=== PATIENT | female | born 1950 | race Caucasian/White ===

== ENCOUNTER → 2018-03-28 | Outpatient (CLI) | payer MEDICARE, OTHER ==
[~2018-03-28] MED LIST: ADVAIR HFA 230M12 GM INH; ASPIR 8181 MG PO; EFFEXOR XR75 MG PO; FLOVENT DISKU250 MCG IH; METOPROLOL TART25 MG PO; MOBIC7.5 MG PO; NORCO 5-325 TA1 EAC1 PO; SINGULAIR 10 MG10 M1 PO; TOPAMAX25 M1 PO; TOPROL XL25 MG PO; VICODIN 5-3001 EACH PO
--- NOTE | 2018-03-28 10:44 | 2DMMODE ---
[place] [address] 2 D/M-MODE ECHOCARDIOGRAM Name: ELINA CHOPRA Room: [facility]#: [id number] Admission: 03/28/18 Attend Phys: Jarret Rankin Discharge: Date of : 48 Date of Service: 03/28/18 1043 Report #: [id number] THIS REPORT FOR: //name// APPROVED REPORT Study performed: 03/28/2018 09:01:19 EXAM: Comprehensive 2D, Doppler, and color-flow Echocardiogram Patient Location: Out-Patient Status: routine BSA: 1.89 HR: 63 bpm BP: 140/90 mmHg Other Information Study Quality: Good Indications Diastolic Dysfunction 2D Dimensions LVEF(%): 74.62 (>50%) IVSd: 10.68 (7-11mm) LVOT Diam: 20.11 (18-24mm) LVDd: 40.42 mm PWd: 9.65 (7-11mm) Ascending Ao: 32.46 (22-36mm) LVDs: 23.04 (25-40mm) Aortic Root: 26.96 mm Cota's LVEF: 74.62 % Volumes Left Atrial Volume (Systole) LA ESV Index: 11.90 mL/m2 Aortic Valve AoV Peak Rob.: 1.42 m/s AO Peak Gr.: 8.04 mmHg LVOT Max P.97 mmHg AO Mean Gr.: 4.18 mmHg LVOT Mean P.58 mmHg LVOT Max V: 0.86 m/s AO V2 VTI: 28.60 cm LVOT Mean V: 0.59 m/s RODNEY (VTI): 2.04 cm2 LVOT V1 VTI: 18.32 cm Mitral Valve E/A Ratio: 0.95 MV Decel. Time: 184.40 [place] [address] 2 D/M-MODE ECHOCARDIOGRAM Name: ELINA CHOPRA Room: [facility]#: [id number] Admission: 03/28/18 Attend Phys: Jarret Rankin Discharge: Date of : 48 Date of Service: 03/28/18 1043 Report #: [id number] MV E Max Rob.: 0.85 m/s MV PHT: 53.48 ms MVA (PHT): 4.11 cm2 TDI E/Lateral E': 10.63 E/Medial E': 9.44 Medial E' Rob.: 0.09 m/s Lateral E' Rob.: 0.08 m/s Pulmonary Valve PV Peak Rob.: 0.64 m/s PV Peak Gr.: 1.66 mmHg Tricuspid Valve TR Peak Gr.: 25.19 mmHg RVSP: 30.19 mmHg Left Ventricle The left ventricle is normal size. There is normal LV segmental wall motion. There is normal left ventricular wall thickness. Left ventricular systolic function is normal. The left ventricular ejection fraction is within the normal range. LVEF is 55-60%. Grade I - abnormal relaxation pattern. Right Ventricle The right ventricle is normal size. The right ventricular systolic function is normal. Atria The left atrium size is normal. The right atrium size is normal. Aortic Valve The aortic valve is normal in structure. No aortic regurgitation is present. There is no aortic valvular stenosis. Mitral Valve The mitral valve is normal in structure. Mild mitral regurgitation. No evidence of mitral valve stenosis. Tricuspid Valve The tricuspid valve is normal in structure. Mild tricuspid regurgitation. The RVSP is __30.2 mmHg. Pulmonic Valve The pulmonary valve is normal in structure. [place] [address] 2 D/M-MODE ECHOCARDIOGRAM Name: ELINA CHOPRA Room: [facility]#: [id number] Admission: 03/28/18 Attend Phys: Jarret Rankin Discharge: Date of : 48 Date of Service: 03/28/18 1043 Report #: [id number] Great Vessels The aortic root is normal in size. IVC is normal in size and collapses with >50% inspiration Pericardium There is no pericardial effusion. <Conclusion> LVEF is 55-60%. Grade I - abnormal relaxation pattern. There is normal LV segmental wall motion. No aortic regurgitation is present. There is no aortic valvular stenosis. Mild mitral regurgitation. Mild tricuspid regurgitation. The RVSP is 30.2 mmHg. <ELECTRONICALLY SIGNED> By: Mainor Santos MD, FACC 03/28/18 1043 1043 1043 Mainor Santos MD, FACC /INF
== END ==
LOC: M.CRD 08:30
DX: I08.1 Rheumatic disorders of both mitral and tricuspid valves (principal); I11.0 Hypertensive heart disease with heart failure; I50.30 Unspecified diastolic (congestive) heart failure

== ENCOUNTER → 2020-07-16 | Outpatient (CLI) | payer MEDICARE, OTHER ==
[~2020-07-16] MED LIST changes: +ALBUTEROL2.5 MG/31 INH; +ASPIRIN EC81 M1 PO; +BACLOFEN 10MG T10 MG PO; +CALCIUM PO; +FLONASE 0.05%50 MCG NARES; +HYDROCODON-ACE1 EAC7 PO; +LEVALBUTEROL TA15 GM INH; +LEVSIN0.125 MG PO; +LOPRESSOR50 MG PO; +MURO-128 5% OPH15 M1 OPHTHALMIC; +OMEPRAZOLE40 MG PO; +PHENERGAN 25 MG25 M1 PO; +PROBIOTIC1 EAC7 PO; +ROXICODONE5 MG PO; +SUPER THERAVIT1 EACH PO; -VICODIN 5-3001 EACH PO; +XANAX 0.5 MG0.5 M1 PO; +XIFAXAN550 M1 PO
== END ==
LOC: M.LAB 10:32
PROVIDERS: ATTEND Surgery
DX: Z01.812 Encounter for preprocedural laboratory examination (principal); Z20.828 Contact with and (suspected) exposure to other viral communicable diseases; K80.20 Calculus of gallbladder without cholecystitis without obstruction

== ENCOUNTER → 2020-07-21 | Day surgery (SDC) | payer MEDICARE, OTHER ==
--- NOTE | 2020-07-23 15:07 | PATH ---
[address] [address] PATHOLOGY RPT PROCEDURE Name: ELINA CHOPRA Room: [facility].#: [id number] Admission: 07/21/20 Date of : 48 Discharge: Report #: [id number] Path Case #: [id number] [facility] Accession Number: [id number] . 01 Material submitted: . gallbladder - GALLBLADDER . 01 Clinical history: . CHOLELITHIASIS . 02 Diagnosis: Gallbadder: - Chronic cholecystitis and cholelithiasis. (NARENDRA:luis; 07/23/2020) S 07/23/2020 1001 Local . 02 Electronically signed: . Alex Hatfield MD, Pathologist NPI- [id number] . 01 Gross description: . The specimen is received in formalin, labeled "jeison Rudd". Received is an intact gallbladder measuring 10.2 x 3.3 x 3.0 cm in greatest dimensions displaying a blue-martins serosal surface. Opening the specimen reveals a velvety, bile-stained mucosa with a gallbladder wall thickness of a 0.1 cm. Calculi are present displaying a bright yellow and multifaceted appearance, and no masses or lesions are noted grossly. Instructional Support Assistant sections, to include the proximal margin, are submitted in cassette A1. (CAA; 07/22/2020) QA/QA 07/22/2020 1347 Local . 02 Pathologist provided ICD-10: K80.10 . 02 CPT . 857980 Specimen Comment: A courtesy copy of this report has been sent to [phone] Specimen Comment: [phone] Specimen Comment: Report sent to / DR MCADAMS Performed at: [address] [id number] MD Brian Friend MD Phone: [phone] Performed at: [address] [id number] [address] [address] PATHOLOGY RPT PROCEDURE Name: ELINA CHOPRA Room: [facility] Jarret.Liang#: [id number] Admission: 07/21/20 Date of : 48 Discharge: Report #: [id number] Path Case #: [id number] MD Alex Hatfield MD Phone: [phone]
--- NOTE | 2020-07-25 10:32 | OP ---
[address] [address] OPERATIVE REPORT Name: NAVELINA K Room: [facility]#: [id number] Admission: 07/21/20 Attend Phys: Van Riley DO Discharge: Date of : 48 Report #: [id number] THIS REPORT FOR: //name// cc: Precious Wells MD, Jayne Lora MD ~ CC: Van Nino DICTATED BY: Aleksandr Velazquez DO DATE OF SERVICE: 07/21/2020 Aleksandr Velazquez DO PGY4 dictating operative report on behalf of Van Riley DO PREOPERATIVE DIAGNOSIS: Cholelithiasis. POSTOPERATIVE DIAGNOSIS: Cholelithiasis. SURGEON: Van Riley DO CO-SURGEON: Aleksandr Velazquez DO PGY4. PAPERHANGER PIPE: RUBIN Dudley. OPERATION PERFORMED: Laparoscopic cholecystectomy with immunofluorescent imaging. ANESTHESIA: General and regional. ESTIMATED BLOOD LOSS: 20 mL. SPECIMENS REMOVED: Gallbladder. COMPLICATIONS: None. HISTORY OF PRESENT ILLNESS: The patient is a 70-year-old female who presented to the office with complaints of intermittent epigastric and right upper quadrant abdominal pain. Ultrasound revealed cholelithiasis. Due to this, we recommended laparoscopic cholecystectomy. Risks, benefits, and alternatives discussed at length and she agreed to proceed with surgery. DESCRIPTION OF PROCEDURE: After consent was obtained, the patient was taken to [address] [address] OPERATIVE REPORT Name: NAVELINA Room: [facility]#: [id number] Admission: 07/21/20 Attend Phys: Van Riley DO Discharge: Date of : 48 Report #: [id number] the operating room and placed in the supine position. SCDs applied to bilateral lower extremities, safety belt placed across the patient's waist. Antibiotics given for surgical prophylaxis. The patient underwent general endotracheal anesthesia without any complication. The patient's abdomen was prepped and draped in the standard sterile fashion. Timeout was performed to confirm the patient and procedure. An 11 blade scalpel was used to make a vertical incision just above the umbilicus. Electrocautery used for hemostasis and to dissect down to the level of fascia. Once fascia was encountered, it was scored with electrocautery. Fascia was grasped between 2 Kochers and elevated. Hemostat was used to bluntly enter the peritoneum. Two stitches of 0 Vicryl were placed in [id number] fashion in either side of the fascia. A 5 mm Madan trocar was inserted into the abdomen. Insufflation was initiated without complication. Intraabdominal contents were inspected. Liver could be seen and appeared to be healthy. Gallbladder was not directly visualized. The patient was placed in reverse Trendelenburg, rotated towards the left. A 5 mm trocar was then inserted in the subxiphoid region under direct visualization, two more 5 mm trocars in the right upper quadrant under direct visualization. Liver was elevated. The gallbladder was seen, grasped and elevated. There were no adhesions to the gallbladder. At this point, we turned our attention towards xiphoid and the cystic artery and cystic duct. Using electrocautery, the visceral peritoneum was scored and carried dissection laterally and medially. [place] dissector was used to bluntly dissect out the cystic duct circumferentially. The cystic artery was found medially and again was carefully dissected out circumferentially using [place] dissector. Both structures were seen going up into the gallbladder. Critical view of safety was obtained. Two clips were placed proximally on the cystic duct, one distally on the cystic duct. Two clips placed proximally on the cystic artery and one clip distally on the cystic artery. Both structures were cut. Electrocautery was used to carefully dissect the gallbladder off the bed of the liver. Hemostasis was ensured with electrocautery. Gallbladder was then placed in laparoscopic EndoCatch bag. Liver was then reinspected and hemostasis was completely ensured. Clips were inspected. There was no evidence of bile or bleeding. At this point, insufflation was let down. All trocars were removed under direct visualization. Gallbladder and its contents were removed from the supraumbilical trocar site. The gallbladder was felt to have any stones within it. The supraumbilical fascia was closed with 2 stitches of 0 Vicryl in a [id number] fashion. Subcutaneous tissue was reapproximated with 3-0 Vicryl, skin incisions were approximated with 4-0 Monocryl in subcuticular fashion. Sterile skin glue was applied to all incisions. All needle, instrument, and sponge counts were correct at the end of the case. The patient was awoken from general anesthesia and transferred to PACU in stable condition. <ELECTRONICALLY SIGNED> By: Van Riley DO 07/25/20 1032 [id number] [id number] Riley DO /nt
== END | disposition home or self-care (01) ==
LOC: M.SUR 11:13
PROVIDERS: ATTEND Surgery
DX: K80.10 Calculus of gallbladder with chronic cholecystitis without obstruction (principal); K21.9 Gastro-esophageal reflux disease without esophagitis; J45.909 Unspecified asthma, uncomplicated; G43.909 Migraine, unspecified, not intractable, without status migrainosus; K58.9 Irritable bowel syndrome, unspecified; Z79.899 Other long term (current) drug therapy; Z85.3 Personal history of malignant neoplasm of breast; Z98.890 Other specified postprocedural states; Z91.040 Latex allergy status; Z80.3 Family history of malignant neoplasm of breast; Z82.49 Family history of ischemic heart disease and other diseases of the circulatory system